=== PATIENT | male | born 2000 | race African-American/Black ===

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

== ENCOUNTER 2018-01-05 22:15 | Emergency (ER) | payer SELFPAY ==
[~2018-01-05] VITALS: Ht 190.5 cm; Wt 79.0 kg
[2018-01-05 23:41] VITALS: BP 111/77
== END 2018-01-06 00:10 | disposition left against medical advice (07) ==
LOC: ER 22:15
DX: Z53.21 Procedure and treatment not carried out due to patient leaving prior to being seen by health care provider (principal)

== ENCOUNTER 2020-04-17 19:07 | Emergency (ER) | payer MEDICAID ==
[~2020-04-17] VITALS: Ht 188 cm; Wt 75.0 kg
[2020-04-17 19:35] VITALS: BP 114/66
== END 2020-04-17 19:35 | disposition left against medical advice (07) ==
LOC: ER 19:07
DX: Z53.21 Procedure and treatment not carried out due to patient leaving prior to being seen by health care provider (principal)